=== PATIENT | female | born 1965 | race Caucasian/White ===

== ENCOUNTER 2018-08-17 09:00 | Outpatient (CLI) | payer BC | END 2018-08-17 10:00 | disposition home or self-care (01) | LOC: D.MAMMO 09:00 | PROVIDERS: ATTEND Family Medicine | DX: Z12.31 Encounter for screening mammogram for malignant neoplasm of breast (principal) ==

== ENCOUNTER → 2018-08-28 10:10 | Outpatient (CLI) | payer BC | END | disposition home or self-care (01) | LOC: D.HCCARDIO 10:10 | PROVIDERS: ATTEND Internal Medicine Cardiovascular Disease | DX: I20.9 Angina pectoris, unspecified (principal) ==

== ENCOUNTER → 2020-04-27 19:37 | Outpatient (CLI) | payer BC ==
[2020-03-26 07:55] VITALS: BMI 32.6
[~2020-04-27 19:37] MED LIST: ASPIRIN325 MG PO; GLUCOPHAGE500 MG PO; HYDROCODON-ACE1 EAC7 PO; LISINOPRIL10 MG PO; LOPRESSOR25 MG PO; PAMELOR75 MG; TEMOVATE 0.05%15 G1 TOPICAL; VALIUM5 MG PO; ZANAFLEX4 MG PO
== END | disposition home or self-care (01) ==
LOC: D.LABREF 19:37
PROVIDERS: ATTEND Podiatrist Foot & Ankle Surgery
DX: L03.115 Cellulitis of right lower limb (principal)